=== PATIENT | female | born 1995 | race Caucasian/White ===

== ENCOUNTER 2024-03-19 18:10 | Emergency (ER) | payer OTHER ==
[~2024-03-19] VITALS: Ht 154.9 cm; Wt 68.2 kg
[~2024-03-19 18:10] MED LIST: PNV11TAB PO
[2024-03-19 18:21] VITALS: TEMP 98.5
[2024-03-19 19:45] VITALS: BP 113/80; PULSE 102; RESP 18; O2SAT 99
== END 2024-03-19 21:22 | disposition home or self-care (01) ==
LOC: EMS 18:10
DX: S80.12XA Contusion of left lower leg, initial encounter (principal); W01.0XXA Fall on same level from slipping, tripping and stumbling without subsequent striking against object, initial encounter; Y93.01 Activity, walking, marching and hiking; Y92.89 Other specified places as the place of occurrence of the external cause; Y99.8 Other external cause status
CPT/HCPCS: 99283

== ENCOUNTER 2024-09-07 21:00 | Emergency (ER) | payer OTHER ==
[~2024-09-07] VITALS: Ht 152.4 cm; Wt 63.2 kg
[2024-09-07 21:25] VITALS: BP 116/80; PULSE 108; RESP 18; TEMP 98.6; O2SAT 98
[2024-09-08] MEDS: LIDOCAINE 1% 10 ML VIAL SQ ONE (01:15)
[2024-09-08] MEDS ORDERED: CEPH-558 PO (02:59)
[2024-09-08] MEDS: CEPHALEXIN MONOHYDRATE 500 MG CAPSULE PO ONE (03:17)
== END 2024-09-08 04:16 | disposition home or self-care (01) ==
LOC: EMS 21:00
DX: S61.412A Laceration without foreign body of left hand, initial encounter (principal); Z79.899 Other long term (current) drug therapy; W26.0XXA Contact with knife, initial encounter; Y93.89 Activity, other specified; Y92.89 Other specified places as the place of occurrence of the external cause; Y99.8 Other external cause status
CPT/HCPCS: 99283; 12002; 73130; J3490